=== PATIENT | female | born 1985 | race Caucasian/White ===

== ENCOUNTER → 2018-07-23 11:06 | Outpatient (CLI) | payer OTHER, SELFPAY ==
[2018-07-23 12:28] LABS: Absolute Lymphocyte Count 1.85 X10^3/ul (0.83-4.51); Absolute Neutrophil Count 2.9 X10^3/uL (2.0-7.7); Basophil# 0.01 X10^3/uL; Basophil% 0.2 % (0-1); Eosinophil# 0.04 X10^3/uL; Eosinophils% 0.8 % (0-5); Hematocrit 41.2 % (37-47); Hemoglobin 13.5 g/dl (12.0-15.0); Lymphocyte # 1.85 X10^3/ul (4.0); Lymphocyte % 35.4 % (19-41); Mean Corp Hgb Conc 32.8 g/gl (32-36); Mean Corpuscular Volume 88.6 fL (81-99); Monocyte# 0.44 X10^3/uL; Monocyte% 8.4 % (0-10); Neutrophil # 2.87 X10^3/uL (2.7-7.7); Platelet Count 194 K/mm3 (150-450); RBC Distribution Width CV 14.4 % (11.6-14.6); RBC Distribution Width SD 46.9 fl (35.1-43.9); Red Blood Count 4.65 M/mm3 (4.2-5.4); White Blood Count 5.2 K/mm3 (4.4-11.0)
[2018-07-23 12:33] LABS: POSITIVE COUNT NO; POSITIVE DIFFERENTIAL NO; POSITIVE MORPHOLOGY NO
[2018-07-23 12:47] LABS: Internal QC Validated? YES +Cl - CLEAR BKGD; Monotest Negative (Negative); Record Kit Lot#, Mono 13171517
[2018-07-25 11:39] LABS: EBV Acute VCA IgM < 36.0 U/mL (0.0-35.9); EBV Early Antigen IgG 21.6 U/mL (0.0-8.9); EBV-VCA IgG > 600.0 U/mL (0.0-17.9)
== END ==
PROVIDERS: Family Provider Family Medicine; PCP Family Medicine; Visit Provider Family Medicine
DX: J02.9 Acute pharyngitis, unspecified (principal)
CPT/HCPCS: 36415; 85025; 86308; 86663; 86664; 86665

== ENCOUNTER → 2018-10-16 14:56 | Outpatient (CLI) | payer OTHER, SELFPAY ==
--- NOTE | 2018-10-16 15:02 | US_ITS ---
STUDY: THYROID ULTRASOUND REASON FOR EXAM: Female, 33 years old. Nodules TECHNIQUE: Ultrasound evaluation of the thyroid was performed with real-time and static llamas-scale imaging. COMPARISON: 11/07/2017 FINDINGS: RIGHT LOBE: The right lobe of the thyroid gland measures 4.8 x 1.8 x 1.5 cm. There is a homogeneous echotexture. Stable 3 x 2 x 2 mm mixed cystic and solid nodule in the lateral inferior right thyroid lobe. LEFT LOBE: The left lobe of the thyroid gland measures 5.0 x 1.6 x 1.4 cm. There is a homogeneous echotexture. Stable ovoid isoechoic nodule in the mid left thyroid lobe measuring 7 x 7 x 5 mm. This is peripherally vascular. ISTHMUS: The isthmus measures 2 mm . US/Thyroid IMPRESSION: Stable bilateral thyroid nodules. No suspicious secondary features are seen. Electronically Signed: Johann Stone MD at 5:07 EST Tel , Service support ,
--- OUTSIDE RECORDS SUMMARY | 2018-12-11 20:34 | XMS RPT_ITS ---
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, 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, [facility] unspecified / Hospital E04.9(ICD-10) Repository PROCEDURES PROCEDURES No Procedure Records FoundRESULTS RESULTS THYROID Observed: 10/16/2018 Status: F Source: [place] 3:03 PM [facility] REPOSITORY [facility] Services [address] [place] [address] Thyroid MR#: [id number] Acct: [id number] Name: LACY CASTILLO Rep #: [id number] : 1985 F 33 From: Johann Stone MD PCP: Davey Zhang MD Status: REG CLI Study: Thyroid Date of Exam: 10/16/18 Exam# [id number] Ordering Dr: Darrel Zhang MD STUDY: THYROID ULTRASOUND REASON FOR EXAM: Female, 33 years old. Nodules TECHNIQUE: Ultrasound evaluation of the thyroid was performed with real-time and static llamas-scale imaging. COMPARISON: 11/07/2017 FINDINGS: RIGHT LOBE: The right lobe of the thyroid gland measures 4.8 x 1.8 x 1.5 cm. There is a homogeneous echotexture. Stable 3 x 2 x 2 mm mixed cystic and solid nodule in the lateral inferior right thyroid lobe. LEFT LOBE: The left lobe of the thyroid gland measures 5.0 x 1.6 x 1.4 cm. There is a homogeneous echotexture. Stable ovoid isoechoic nodule in the mid left thyroid lobe measuring 7 x 7 x 5 mm. This is peripherally vascular. ISTHMUS: The isthmus measures 2 mm . US/Thyroid IMPRESSION: Stable bilateral thyroid nodules. No suspicious secondary features are seen. Electronically Signed: Johann Stone MD at 5:07 EST Tel , Service support , CC: Davey Zhang MD Overlock Elastic Attacher: Signed CBC W/DIFF, AUTOMATED Collected: 07/23/2018 Status: F Source: [place] 11:07 AM [facility] REPOSITORY TYPE CODE TESTS RESULT OUT OF RANGE REFERENCE UNITS LAB L100.1000 4.4-11.0 K/mm3 Normal WBC 5.2 LAB L100.1200 4.2-5.4 M/mm3 Normal RBC 4.65 LAB L100.1300 12.0-15.0 g/dl Normal HGB 13.5 LAB L100.1400 37-47 % Normal HCT 41.2 LAB L100.1500 81-99 fL Normal MCV 88.6 LAB L100.1600 27.0-32.0 pg Normal MCH 29.0 LAB L100.1700 32-36 g/gl Normal MCHC 32.8 LAB L100.1810 11.6-14.6 % Normal RDW CV 14.4 LAB L100.1820 35.1-43.9 fl High RDW SD 46.9 LAB L100.1900 150-450 K/mm3 Normal PLT 194 LAB L100.2000 6.2-12.0 fl Normal MPV 12.0 LAB L100.2100 47-70 % Normal NEUT% 55.0 LAB L100.2200 19-41 % Normal LY% 35.4 LAB L100.2300 0-10 % Normal MONO% 8.4 LAB L100.2400 0-5 % Normal EO% 0.8 LAB L100.2500 0-1 % Normal BASO% 0.2 LAB L100.2550 0.0-0.9 % Normal IM GRAN % 0.200 Result Comment: IG% - Immature Granulocytes (promyelocytes, myelocytes and metamyelocytes) > 1% indicates that a LEFT SHIFT is Present. LAB L100.2620 2.0-7.7 X10 3/uL Normal Absolute Neut 2.9 LAB L100.2720 0.83-4.51 X10 3/ul Normal Absolute Lymph 1.85 Performed By: #### L100.0100 #### [facility] [address] [place], [place], [address] MONOTEST Collected: 07/23/2018 Status: F Source: [place] 11:07 AM [facility] REPOSITORY TYPE CODE TESTS RESULT OUT OF RANGE REFERENCE UNITS LAB L700.5700 Negative Normal MONO Negative Performed By: #### L700.5500 #### [facility] [address] [place], [address] EBV ACUTE PROF IGG Collected: 07/23/2018 Status: F Source: [place]IS[place] / IGM 11:07 AM [facility] REPOSITORY TYPE CODE TESTS RESULT OUT OF RANGE REFERENCE UNITS LAB L3100.5900 0.0-35.9 U/mL Normal EB-VCA < 36.0 [id number] Result Comment: Negative <36.0 Equivocal 36.0 - 43.9 Positive >43.9 LAB L3100.6000 0.0-8.9 U/mL High EB-EA IgG 21.6 [id number] Result Comment: Hepatitis A, Hepatitis C and HIV antibodies may cross-react with this assay. Negative < 9.0 Equivocal 9.0 - 10.9 Positive >10.9 LAB L3100.6100 0.0-17.9 U/mL High EB-VCA > [id number] 600.0 Result Comment: Negative <18.0 Equivocal 18.0 - 21.9 Positive >21.9 LAB L3100.6200 0.0-17.9 U/mL High EB-NAg 467.0 [id number] Result Comment: Negative <18.0 Equivocal 18.0 - 21.9 Positive >21.9 LAB L3100.6300 . INTERPRETATION Normal Comment Result Comment: EBV Interpretation Chart Interpretation EBV-IgM EA(D)-IgG VCA-IgG EBNA-IgG EBV Seronegative - - - - Early Phase + - - - Acute Primary + +or- + - Infection Convalescence/Past - +or- + + Infection Reactivated +or- + + + Infection + Antibody Present - Antibody Absent Performed at: [facility] [address] [id number] [employer] Laborer: Neto Stanley PhD, Phone: [phone] Performed By: #### L3100.5850 #### [facility] (refer to report for specific site) refer to report for address and phone number PROGRESS Observed: 12/09/2017 Status: COMPLETED Source: [place] 6:03 PM [facility] [place] REPOSITORY HNO ID: [id number] Author: Frantz Wells Service: (none) Author Type: Physician Type: Progress Notes Filed: 12/09/2017 6:26 PM Note Text: Patient presents with: Cough: chest congestion, head congestion, bodyaches, chills, sore throat x 3 days HPI: Feeling sick for 3 days. Her daughter is sick with URI also. Her has influenza. Positive symptoms: Cough, chest congestion, Sore throat, Sinus pressure, Chills, Body Aches, Nasal Congestion, Rhinorrhea, Post nasal drainage, Fever, Negative symptoms: Vomiting, Diarrhea, OTC: Ibuprofen Did not have influenza vaccine this season. PAST MEDICAL HISTORY Diagnosis Date - Abnormal glandular Papanicolaou smear of cervix Abn. Pap smear (cervix), ASCUS - Anemia - NEGATIVE MEDICAL HISTORY - Thyroid nodule - Varicosities RIGHT LEG MEDICATIONS: Current Outpatient Prescriptions: CETIRIZINE HCL (ZYRTEC ORAL) Take by mouth. LEVONORGESTREL (MIRENA INTRAUTERINE) by INTRAUTERINE route. No current facility-administered medications for this visit. ALLERGIES: ALLERGIES Allergen Reactions - Bees Unknown VITALS: BP 118/78 Pulse 94 Temp 37.5 ?C (99.5 ?F) (Tympanic) Resp 16 Wt 83.9 kg (185 lb) LMP 12/02/2017 SpO2 96% BMI 34.96 kg/m2 PHYSICAL EXAM: GEN: mildly ill appearing HEENT: PERRL, EOMI, conjunctiva clear Ears: canals clear, TMs without erythema, bulge, or effusion Sinuses: non-tender frontal sinus, non-tender maxillary sinuses Throat: moist mucous membranes, mild erythema, no exudate Neck: supple, no thyromegaly, no lymphadenopathy HEART: regular rate and rhythm, no murmurs LUNGS: clear to auscultation, no wheezes or crackles, no increased WOB ASSESSMENT/PLAN: 1. URI, acute - ICD9: 465.9, ICD10: J06.9 - Discussed viral etiology and rationale for treatment. She is beyond the therapeutic window for tamiflu. - Symptomatic treatment with prn analgesia/cold medicine - Supportive care with fluids and rest Frantz Wells MD CNOV Observed: 12/09/2017 Status: COMPLETED Source: [place] 5:45 PM [facility] REPOSITORY Office Visit (WSTR) LACY CASTILLO ([id number]) 1985 F CHT Date Time Provider Department 12/09/17 5:45 PM FRANTZ WELLS [facility] During your visit today, we recorded the following information about you: Temperature Pulse Respiration Blood pressure 99.5 degrees 94/minute 16/minute 118/78 Weight Last Period 83.9 kg 12/02/17 Frantz Wells MD 12/09/2017 6:26 PM Signed Patient presents with: Cough: chest congestion, head congestion, bodyaches, chills, sore throat x 3 days HPI: Feeling sick for 3 days. Her daughter is sick with URI also. Her has influenza. Positive symptoms: Cough, chest congestion, Sore throat, Sinus pressure, Chills, Body Aches, Nasal Congestion, Rhinorrhea, Post nasal drainage, Fever, Negative symptoms: Vomiting, Diarrhea, OTC: Ibuprofen Did not have influenza vaccine this season. PAST MEDICAL HISTORY Diagnosis Date - Abnormal glandular Papanicolaou smear of cervix Abn. Pap smear (cervix), ASCUS - Anemia - NEGATIVE MEDICAL HISTORY - Thyroid nodule - Varicosities RIGHT LEG MEDICATIONS: Current Outpatient Prescriptions: CETIRIZINE HCL (ZYRTEC ORAL) Take by mouth. LEVONORGESTREL (MIRENA INTRAUTERINE) by INTRAUTERINE route. No current facility-administered medications for this visit. ALLERGIES: ALLERGIES Allergen Reactions - Bees Unknown VITALS: BP 118/78 Pulse 94 Temp 37.5 ?C (99.5 ?F) (Tympanic) Resp 16 Wt 83.9 kg (185 lb) LMP 12/02/2017 SpO2 96% BMI 34.96 kg/m2 PHYSICAL EXAM: GEN: mildly ill appearing HEENT: PERRL, EOMI, conjunctiva clear Ears: canals clear, TMs without erythema, bulge, or effusion Sinuses: non-tender frontal sinus, non-tender maxillary sinuses Throat: moist mucous membranes, mild erythema, no exudate Neck: supple, no thyromegaly, no lymphadenopathy HEART: regular rate and rhythm, no murmurs LUNGS: clear to auscultation, no wheezes or crackles, no increased WOB ASSESSMENT/PLAN: 1. URI, acute - ICD9: 465.9, ICD10: J06.9 - Discussed viral etiology and rationale for treatment. She is beyond the therapeutic window for tamiflu. - Symptomatic treatment with prn analgesia/cold medicine - Supportive care with fluids and rest Frantz Wells MD Referring Provider: SELF [200] Allergies As of Date: 12/09/2017 Noted Allergy Reaction BEES 10/02/2014 16 - Unknown Date Reviewed: 12/09/2017 Reviewed by: Addie Lutz Ma - Fully Assessed Reason for Visit: Cough [28] Cmt: chest congestion, head congestion, bodyaches, chills, sore throat x 3 days Primary Visit Diagnosis:URI, acute [J06.9] Prescriptions as of 12/09/2017 Sig: ZYRTEC ORAL Take by mouth. MIRENA INTRAUTERINE by INTRAUTERINE route. Problem List As Of Date 12/09/2017 Noted Resolved PCB (post coital bleeding) [N93.0] INVALID FOR*09/01/2014 Thyroid nodule [E04.1] INVALID FOR*11/15/2014 More... Nausea and vomiting in [O21.9] INVALID FOR*09/01/2014 More... History of varicose veins [Z86.79] INVALID FOR*09/01/2014 More... Family history of defects [Z82.79] INVALID FOR*11/15/2014 More... Pneumonia [J18.9] INVALID FOR*09/01/2014 More... Supervision of normal first [Z34.00] INVALID FOR*11/15/2014 More... Medications Discontinued During This Encounter VIT/IRON FUMARATE/FA (PRENA* 12/09/2017 Class: Historical Med Route: ORAL Sig: Take by mouth once daily. Disc: Reason for discontinue is not on file. Breast Pump kd 1 De* 0 10/21/2014 12/09/2017 Class: Print RX Sig: As directed. Dx: v24.1 Lactating mother. Disc: Reason for discontinue is not on file. Cosign accepted by CORY REINOSO MD[[id number]] on 10/21/2014 5:01 PM Norethindrone, Contraceptive, (ORTHO* 1 Pa* 12 11/15/2014 12/09/2017 Route: ORAL Sig: Take 1 tablet by mouth once daily. Disc: Reason for discontinue is not on file. Encounter Status:Closed by FRANTZ WELLS MD on 12/09/17 MISCELLANEOUS LAB Collected: 11/07/2017 Status: F Source: [place] PROCEDURE 11:30 AM [facility] REPOSITORY Order Comment: Test(s) Ordered: [id number] TYPE CODE TESTS RESULT OUT OF RANGE REFERENCE UNITS LAB L801.1541 Normal [facility] LAB TEST Result Comment: TEST RESULT UNITS REFERENCE INTERVAL Liver-Kidney Microsomal Ab <1.0 Units 0.0 - 20.0 Negative 0.0 - 20.0 Equivocal 20.1 - 24.9 Positive >24.9 LKM type 1 antibodies are detected in patients with autoimmune hepatitis type 2 and in up to 8% of patients with chronic HCV infection. TESTING PERFORMED AT [facility]. ORIGINAL REPORT ON FILE IN LAB CONTAINS ADDITIONAL TEST SITE INFORMATION. Performed By: #### L801.1541 #### [place] [facility] [address] [place], [address] THYROID STIM HORMONE Collected: 11/07/2017 Status: F Source: [place]IS[place] (TSH) 11:23 AM [facility] REPOSITORY Order Comment: Order Date: 10/22/17 Order Info: 3016-3 - TSH Order Info: 3024-7 - T4F TYPE CODE TESTS RESULT OUT OF RANGE REFERENCE UNITS LAB L501.9520 0.358-3.74 uIU/mL Normal TSH 1.79 Performed By: #### L501.9520, L506.0400 #### [place] [facility] [address] [place], [address] T4 FREE DIRECT Collected: 11/07/2017 Status: F Source: [place] 11:23 AM [facility] REPOSITORY Order Comment: Order Date: 10/22/17 Order Info: 3016-3 - TSH Order Info: 3024-7 - T4F TYPE CODE TESTS RESULT OUT OF RANGE REFERENCE UNITS LAB L506.0400 0.76-1.46 ng/dL Normal T4 FREE 0.87 DIRECT Performed By: #### L501.9520, L506.0400 #### [facility] [address] [place], [address] THYROID Observed: 11/07/2017 Status: F Source: [place] 10:45 AM [facility] REPOSITORY [facility] Imaging Services [address] [place] [address] Thyroid MR#: [id number] Acct: [id number] Name: LACY CASTILLO Rep #: [id number] : 1985 F 32 From: Alonzo Ziegler MD PCP: Davey Zhang MD Status: REG CLI Study: Thyroid Date of Exam: 11/07/17 Exam# [id number] Ordering Dr: Darrel Zhang MD STUDY: THYROID ULTRASOUND REASON FOR EXAM: Female, 32 years old. History of thyroid goiter. TECHNIQUE: Ultrasound evaluation of the thyroid was performed with real-time and static llamas-scale imaging. COMPARISON: None. FINDINGS: RIGHT LOBE: The right lobe of the thyroid gland is enlarged and measures 5.2 cm x 1.6 cm x 1.5 cm. There is a homogeneous echotexture. There is a 3 mm x 2 mm x 2 mm hypoechoic nodule in the midportion of the lobe. LEFT LOBE: The left lobe of the thyroid gland is enlarged and measures 5.4 cm x 1.3 cm x 1.3 cm. There is a homogeneous echotexture. There is a isoechoic solid nodule measuring 7 mm x 9 mm x 4 mm in the midportion of the left lobe. ISTHMUS: The isthmus measures 3.0 mm. The regional lymph nodes are normal. US/Thyroid IMPRESSION: Enlarged thyroid gland. Subcentimeters solid nodules in both lobes. Electronically Signed: Alonzo Ziegler MD at 9:28 EST Tel [phone], Service support , CC: Davey Zhang MD Overlock Elastic Attacher: Signed ALLERGIES ALLERGIES DATE TYPE / CODE NAME / CODE REACTION SEVERITY SOURCE 04/09/2015 Drug venom-honey Anaphylaxis Unknown [facility] Allergy/4160 bee/[id number] [facility] 59033(SNOMED 698(RXNORM) Repository CT) 10/02/2014 Environ/[address] [facility] [address](SNOMED [place]) Repository ENCOUNTERS ENCOUNTERS ADMIT/DISCHARGE ACCOUNT ADMITTING ENCOUNTER LOCATION SOURCE NUMBER CLASS 10/16/2018 [id number] [facility] ing:US Repository 07/23/2018 [id number] [facility] ing:MFPLAB Repository 12/09/2017/12/09/19 [id number] [address]ulatory [address] Repository 11/07/2017 [id number] [facility] ing:[facility] Repository PAYERS PAYERS ENCOUNTER GUARANTOR PAYER SUBSCRIBER SOURCE 10/16/2018 LACY Castillo Primary Insurance:MED Geno Bentleytej [address] [facility]: [facility] [place]: [id number] [id number] Repository [address]Sxs: [phone]) Date:7359-13-36[phone] () [address], [place] [address]AL: CHECK WEBSITE 10/16/2018 Secondary NOT GIVENUNK [place] Insurance:SELF PAY [facility] ([place], [place]) Number: Effective Repository Date:2018-10-03 07/23/2018 Lacy Castillo Primary Insurance:MED Genoluz elena Edmondson [address]ok[address] [facility] [place] Number: [id number] [id number] Repository [address]Seg: [phone]) Date:7534-12-30PY [phone] () [address], [place] [address]FE: CHECK WEBSITE 07/23/2018 Secondary NOT GIVENUNK [place] Insurance:SELF PAY [facility] ([place], [place]) Number: Effective Repository Date:2018-07-23 11/07/2017 Lacy Castillo Primary Insurance:PHYLLIS Castillo238 [facility] Number: [id number], [place] [id number] Repository [address]Pqi: ([phone]) Date:7854-32-59UK [phone] () [address], [place] [address]YV: CHECK WEBSITE 11/07/2017 Secondary NOT GIVENUNK [place] Insurance:SELF PAY [facility] ([place], [place]) Number: Effective Repository Date:2017-10-24
== END ==
PROVIDERS: Family Provider Family Medicine; PCP Family Medicine; Referring Provider Family Medicine; Visit Provider Family Medicine
DX: E04.1 Nontoxic single thyroid nodule (principal)
CPT/HCPCS: 76536

== ENCOUNTER → 2019-08-06 | Outpatient (CLI) | payer OTHER, SELFPAY ==
[2019-08-06 17:27] LABS: Hematocrit 40.5 % (37-47); Hemoglobin 13.3 g/dL (12.0-15.0); Mean Corp Hgb Conc 32.8 g/dL (32-36); Mean Corpuscular Hgb 29.7 pg (27.0-32.0); Mean Corpuscular Volume 90.4 fL (81-99); Mean Platelet Vol. 12.2 fl (6.2-12.0); Platelet Count 228 K/mm3 (150-450); RBC Distribution Width CV 13.2 % (11.6-14.6); Red Blood Count 4.48 M/mm3 (4.2-5.4); White Blood Count 5.5 K/mm3 (4.4-11.0)
[2019-08-06 17:36] LABS: Erythrocyte Sedimentation Rate 6 mm/hr (0-20)
[2019-08-06 17:50] LABS: Anion Gap 3 (5-15); BUN 10 mg/dL (7-18); BUN/Creat Ratio 11.3 RATIO (10-20); Chloride 107 mmol/L (98-107); Creatinine, Serum 0.88 mg/dL (0.55-1.02); EST Glomerular Filtration Rate 79 mL/min (>60); Est Glom Filt Rate - Afr Amer 95 mL/min (>60); Ferritin 60 ng/mL (8-252); Free T3 2.9 pg/mL (2.18-3.98); Glucose 91 mg/dL (74-106); Iron 67 ug/dL (50-170); Potassium 3.8 mmol/L (3.5-5.1); Sodium Level 139 mmol/L (136-145); T3 Uptake 32 % (30-39); T4 Free Direct 0.92 ng/dL (0.76-1.46); Thyroid Stim Hormone (TSH) 2.19 uIU/mL (0.358-3.74)
[2019-08-06 17:51] LABS: Vitamin B12 407 pg/mL (211-911); Vitamin D,25 Hydroxy 24.8 ng/mL (29.95-100.01)
[2019-08-06 18:09] LABS: T7 / Free Thyroxin Index 0.3 (1.4-4.5)
[2019-08-08 10:17] LABS: Thyroid Peroxidase AB < 6 IU/mL (0-34)
== END | disposition home or self-care (01) ==
LOC: MFPLAB 15:44
PROVIDERS: Family Provider Family Medicine; PCP Family Medicine; Referring Provider Family Medicine; Visit Provider Family Medicine
DX: R53.83 Other fatigue (principal)
CPT/HCPCS: 36415; 80048; 82306; 82607; 82728; 83540; 84439; 84443; 84479; 84481; 85027; 85652; 86376

== ENCOUNTER 2019-08-18 20:54 | Emergency (ER) | payer OTHER, SELFPAY ==
[2019-08-18 20:55] VITALS: BP 137/73; PULSE 82; RESP 15; TEMP 36.7; O2SAT 97; BMI 35.1
--- NOTE | 2019-08-18 21:28 | CT_ITS ---
STUDY: CT ABDOMEN AND PELVIS WITH CONTRAST REASON FOR EXAM: Female, 34 years old. Lower abdominal pain RADIATION DOSAGE (If Supplied By Facility): CTDIvol = ( 15.45 ) mGy, DLP = ( 941.56 ) mGycm TECHNIQUE: Transaxial images were obtained from the dome of the diaphragm to the symphysis pubis without oral contrast. IV Isovue 300 100 was administered. Sagittal and coronal images were reconstructed. Individualized dose optimization techniques were used for this CT. COMPARISON: None. FINDINGS: The visualized lung bases are unremarkable. The visualized portions of the heart are within normal limits. Normal liver. Normal gallbladder and extrahepatic biliary system. There is mild splenomegaly. Normal pancreas. Normal bilateral adrenal glands. Normal right kidney. Normal left kidney. Normal visualized stomach. Normal small intestine. Normal colon. There is moderate stool. The appendix is visualized and appears normal. Normal abdominal aorta. Normal inferior vena cava. Normal retroperitoneum. Normal urinary bladder. There is IUD in the uterus. There are adnexal follicles. There is a small umbilical hernia containing fat. Normal osseous structures. CT/Abdomen/Pelvis W IV Cont ONLY IMPRESSION: Adnexal follicles. IUD in the uterus. Mild splenomegaly. Moderate stool. No obstruction. Electronically Signed: Jesse Waller MD at 22:56 EDT , Service support ,
[2019-08-18 21:40] LABS: Absolute Lymphocyte Count 2.12 X10^3/uL (0.83-4.51); Absolute Neutrophil Count 3.8 X10^3/uL (2.0-7.7); Basophil# 0.03 X10^3/uL; Basophil% 0.5 % (0-1); Eosinophil# 0.05 X10^3/uL; Eosinophils% 0.8 % (0-5); Hematocrit 39.3 % (37-47); Hemoglobin 12.8 g/dL (12.0-15.0); Lymphocyte # 2.12 X10^3/ul (4.0); Lymphocyte % 33.5 % (19-41); Mean Corp Hgb Conc 32.6 g/dL (32-36); Mean Corpuscular Hgb 29.1 pg (27.0-32.0); Mean Corpuscular Volume 89.3 fL (81-99); Mean Platelet Vol. 11.9 fl (6.2-12.0); Monocyte# 0.33 X10^3/uL; Monocyte% 5.2 % (0-10); NRBC Flagged by Analyzer 0 % (0-5); Neutrophil # 3.78 X10^3/uL (2.7-7.7); Neutrophil % 59.7 % (47-70); Platelet Count 217 K/mm3 (150-450); RBC Distribution Width CV 13.1 % (11.6-14.6); White Blood Count 6.3 K/mm3 (4.4-11.0)
[2019-08-18 21:44] LABS: Anion Gap 7 (5-15); BUN 11 mg/dL (7-18); BUN/Creat Ratio 13.4 RATIO (10-20); Calcium,Total 9.6 mg/dL (8.5-10.1); Chloride 104 mmol/L (98-107); Creatinine, Serum 0.82 mg/dL (0.55-1.02); EST Glomerular Filtration Rate 86 mL/min (>60); Est Glom Filt Rate - Afr Amer 104 mL/min (>60); Estimated Creatinine Clearance 74.32 ml/min; Glucose 100 mg/dL (74-106); Potassium 3.7 mmol/L (3.5-5.1); Sodium Level 139 mmol/L (136-145)
[2019-08-18 22:06] LABS: Bacteria 0 SEEN /hpf (None Seen); Mucous, Urine 0 SEEN /hpf (<or=2+); Red Blood Cells-Urine 0 SEEN /hpf (0-5); White Blood Cells 0 SEEN /hpf (0-5)
[2019-08-18 22:16] LABS: Color, Urine Yellow (Yellow); Glucose, Dipstick Normal (Normal); Ketone-Dipstick Negative (Negative); Leukocyte Esterase-Dipstick Negative /ul (Negative); Nitrite-Dipstick Negative (Negative); Occult Blood-Urine Negative /ul (Negative); Protein-Dipstick Negative (Negative); Specific Gravity, Urine 1.005 (1.002-1.030); Urine Bilirubin Dipstick Negative (Negative); Urine Clarity Sl. Cloudy (Clear); Urine Urobilinogen Normal (Normal)
[2019-08-18 22:22] LABS: Internal QC Validated? YES +Cl - CLEAR BKGD; Pregnancy, Urine Negative Negative
[2019-08-18 22:25] LABS: Squamous Epithelial Cells - UA 0-5 SEEN /hpf (5-10)
--- NOTE | 2019-08-18 23:09 | ED.VISSUMM ---
- ER Visit Summary Date of Service: 08/18/19 Chief Complaint: Abdominal pain History of Present Illness: The patient is a 34 F [place] the emergency department tonight. Seen severe abdominal cramping. Patient states she came home from work and began to feel cramping in the lower abdomen. She felt like maybe she did have a bowel movement but did not. She states the cramping kept coming and going and at one point was pretty severe she got hot sweaty and lightheaded. States she has an IUD in place. No vomiting or diarrhea. No fevers. Is otherwise a very healthy individual only taking Zyrtec for allergies. She had a prior no other abdominal surgeries. Physical Examination: Afebrile vital signs stable Gen: Well-nourished well-developed Head: Normocephalic atraumatic Eyes: Perrl EOMI ENT: TMs clear no rhinorrhea moist mucous membranes Neck: Supple no lymphadenopathy no JVD nontender CVS: Regular rate rhythm no murmurs normal S1-S2 Respiratory: No distress clear to auscultation bilaterally chest nontender Abdomen: Soft nontender nondistended normal bowel sounds no masses Back: Nontender Extremity: Nontender no edema Skin: Normal color no rash Neuro: alert orientated ?3 CN II-XII intact normal strength sensation Psych: Normal affect normal mood Test Results: CBC BMP were normal. Urinalysis normal. test was negative. CT down pelvis was negative for acute findings. Emergency Department Course and Treatment: Repeat exam finds the patient to be doing well. I do not have a clear explanation for her pain I do not see an significant pathology to require an admission. Patient will follow-up with her doctor in 1 to 2 days if her symptoms continue or return if there are worsening Impression: 1. Acute abdominal pain 2. Vasovagal near syncope This note was generated with [employer] dictation software. It may contain incorrect words, spelling, and punctuation that were not noted in review of the chart prior to signing ED Disposition - Plan for ED Patient: Disposition: Home or Assisted Living Instructions: ABDOMINAL PAIN, Unknown Cause, (Female), NEAR SYNCOPE, Vasovagal Referrals: Darrel Zhang MD [Primary Care Provider] - (in 1-2 days if continued symptoms)
== END 2019-08-18 23:18 | disposition home or self-care (01) ==
PROVIDERS: Emergency Provider Emergency Medicine; Family Provider Family Medicine; PCP Family Medicine
DX: R55 Syncope and collapse (principal)
CPT/HCPCS: 74177; 80048; 81001; 81025; 85025; 99285; Q9967; A4216

== ENCOUNTER → 2020-12-14 15:32 | Outpatient (CLI) | payer OTHER, SELFPAY ==
[2019-10-08 17:40] VITALS: BMI 35.1
[2020-12-19 10:08] LABS: HPV APTIMA, High Risk Negative (Negative)
== END ==
PROVIDERS: PCP Family Medicine; Visit Provider Obstetrics & Gynecology
DX: Z12.4 Encounter for screening for malignant neoplasm of cervix (principal)
CPT/HCPCS: 87624; 88175; G0145

== ENCOUNTER → 2021-06-14 15:13 | Outpatient (CLI) | payer OTHER, SELFPAY ==
[2019-10-08 17:40] VITALS: BMI 35.1
[2021-06-14 17:39] LABS: Absolute Lymphocyte Count 1.64 X10^3/uL (0.83-4.51); Absolute Neutrophil Count 3.1 X10^3/uL (2.0-7.7); Basophil# 0.02 X10^3/uL; Basophil% 0.4 % (0-1); Eosinophil# 0.08 X10^3/uL; Eosinophils% 1.6 % (0-5); Hematocrit 40.7 % (37-47); Hemoglobin 13.2 g/dL (12.0-15.0); Lymphocyte # 1.64 X10^3/ul (0.83-4.51); Lymphocyte % 32.9 % (19-41); Mean Corp Hgb Conc 32.4 g/dL (32-36); Mean Corpuscular Hgb 29.1 pg (27.0-32.0); Mean Corpuscular Volume 89.8 fL (81-99); Mean Platelet Vol. 12.2 fl (6.2-12.0); Monocyte# 0.19 X10^3/uL; Monocyte% 3.8 % (0-10); NRBC Flagged by Analyzer 0 % (0-5); Neutrophil # 3.05 X10^3/uL (2.7-7.7); Neutrophil % 61.3 % (47-70); Platelet Count 240 K/mm3 (150-450); RBC Distribution Width CV 13.3 % (11.6-14.6); RBC Distribution Width SD 44.1 fl (35.1-43.9); Red Blood Count 4.53 M/mm3 (4.2-5.4)
[2021-06-14 17:50] LABS: Erythrocyte Sedimentation Rate 6 mm/hr (0-30)
[2021-06-14 18:08] LABS: ALB/GLOB Ratio 1.2 RATIO (0.9-2.4); AST(SGOT) 16 U/L (15-37); Alanine Aminotransfer ALT/SGPT 21 U/L (13-56); Alkaline Phosphatase 74 U/L (45-117); Anion Gap 5 (5-15); BUN 9 mg/dL (7-18); BUN/Creat Ratio 11.3 RATIO (10-20); Calcium,Total 9.1 mg/dL (8.5-10.1); Chloride 105 mmol/L (98-107); EST Glomerular Filtration Rate 87 mL/min (>60); Est Glom Filt Rate - Afr Amer 106 mL/min (>60); Ferritin 69 ng/mL (8-252); Globulin 3.3 g/dL (2.2-4.2); Glucose 179 mg/dL (74-106); Iron 85 ug/dL (50-170); Potassium 3.8 mmol/L (3.5-5.1); Protein, Total 7.3 g/dL (6.4-8.2); Sodium Level 139 mmol/L (136-145); T4 Free Direct 0.98 ng/dL (0.76-1.46); Thyroid Stim Hormone (TSH) 1.03 uIU/mL (0.358-3.74)
[2021-06-14 18:15] LABS: Vitamin B12 254 pg/mL (211-911); Vitamin D,25 Hydroxy 30.5 ng/mL
== END ==
PROVIDERS: PCP Family Medicine; Referring Provider Family Medicine; Visit Provider Family Medicine
DX: R53.83 Other fatigue (principal); E04.1 Nontoxic single thyroid nodule
CPT/HCPCS: 36415; 80053; 82306; 82607; 82728; 83540; 84439; 84443; 84481; 85025; 85652

== ENCOUNTER → 2021-09-03 14:57 | Outpatient (CLI) | payer OTHER, SELFPAY | PROVIDERS: PCP Family Medicine; Referring Provider Physician Assistant Medical; Visit Provider Physician Assistant Medical | DX: R05.9 Cough, unspecified (principal) | CPT/HCPCS: 87635; U0005; U0003 ==

== ENCOUNTER → 2021-09-19 16:41 | Outpatient (CLI) | payer OTHER, SELFPAY ==
[2021-09-19 18:32] LABS: Vitamin B12 778 pg/mL (211-911); Vitamin D,25 Hydroxy 46.4 ng/mL
== END ==
PROVIDERS: PCP Family Medicine; Referring Provider Family Medicine; Visit Provider Family Medicine
DX: E53.8 Deficiency of other specified B group vitamins (principal); E55.9 Vitamin D deficiency, unspecified
CPT/HCPCS: 36415; 82306; 82607

== ENCOUNTER 2022-02-20 15:31 | Outpatient (CLI) | payer OTHER, SELFPAY ==
[2022-02-20 18:01] LABS: Hematocrit 42.9 % (37-47); Hemoglobin 13.9 g/dL (12.0-15.0); Mean Corp Hgb Conc 32.4 g/dL (32-36); Mean Corpuscular Hgb 29.3 pg (27.0-32.0); Mean Corpuscular Volume 90.3 fL (81-99); Mean Platelet Vol. 12.1 fl (6.2-12.0); Platelet Count 263 K/mm3 (150-450); RBC Distribution Width CV 13.3 % (11.6-14.6); Red Blood Count 4.75 M/mm3 (4.2-5.4); White Blood Count 6.8 K/mm3 (4.4-11.0)
[2022-02-20 18:04] LABS: Erythrocyte Sedimentation Rate 6 mm/hr (0-30)
[2022-02-20 18:05] LABS: Vitamin B12 256 pg/mL (211-911); Vitamin D,25 Hydroxy 59.1 ng/mL
[2022-02-20 18:18] LABS: ALB/GLOB Ratio 1.2 RATIO (0.9-2.4); AST(SGOT) 17 U/L (15-37); Alanine Aminotransfer ALT/SGPT 22 U/L (13-56); Alkaline Phosphatase 84 U/L (45-117); Anion Gap 4 (5-15); BUN 11 mg/dL (7-18); BUN/Creat Ratio 13.4 RATIO (10-20); Calcium,Total 9.6 mg/dL (8.5-10.1); Chloride 106 mmol/L (98-107); Creatinine, Serum 0.82 mg/dL (0.55-1.02); EST Glomerular Filtration Rate 85 mL/min (>60); Est Glom Filt Rate - Afr Amer 103 mL/min (>60); Free T3 2.6 pg/mL (2.18-3.98); Globulin 3.4 g/dL (2.2-4.2); Glucose 96 mg/dL (74-106); Iron 56 ug/dL (50-170); Potassium 4.1 mmol/L (3.5-5.1); Protein, Total 7.4 g/dL (6.4-8.2); Sodium Level 138 mmol/L (136-145); T3 Uptake 31 % (30-39); T4 Free Direct 0.98 ng/dL (0.76-1.46); Thyroid Stim Hormone (TSH) 1.95 uIU/mL (0.358-3.74)
[2022-02-20 19:02] LABS: T7 / Free Thyroxin Index 0.3 (1.4-4.5)
[2022-02-27 12:10] LABS: Anti-Thyroglobulin AB < 1.0 IU/mL (0.0-0.9); Thyroglobulin, Serum Qt. 3.6 ng/mL (1.5-38.5)
== END 2022-02-20 23:59 | disposition home or self-care (01) ==
LOC: MFPLAB 15:35
PROVIDERS: PCP Family Medicine; Referring Provider Family Medicine; Visit Provider Family Medicine
DX: R53.83 Other fatigue (principal)
CPT/HCPCS: 36415; 80053; 82306; 82533; 82607; 83540; 84432; 84439; 84443; 84479; 84481; 85027; 85652; 86800

== ENCOUNTER 2022-09-23 18:32 | Emergency (ER) | payer OTHER, SELFPAY ==
[2022-09-23 18:33] VITALS: BP 121/86; PULSE 111; RESP 16; TEMP 35.9; O2SAT 95; BMI 35.4
[2022-09-23] MEDS: 0.9% Normal Saline 1,000 ML 1000 ML IV (19:11)
[2022-09-23] MEDS: Ondansetron 4 MG/2 ML Vial IV (19:11)
--- NOTE | 2022-09-23 19:23 | EDS_ITS ---
HPI History of Present Illness Chief Complaint: Nausea/Vomiting/Diarrhea Detail of Chief Complaint: Abdominal pain with nausea, vomiting and diarrhea Informant: patient Onset/Context/Timing Onset: Today (Onset 0200) Context: Sudden Onset Timing: Intermittent and Waxes and wanes Quality: Vomiting x10, diarrhea x3 and diffuse abdominal pain Location: Diffuse abdominal pain Current Severity: Mild Maximum Severity: Moderate Worsened by: Vomiting and diarrhea Relieved by: Nothing Associated Symptoms Associated Symptoms: Thirst, dry mouth, orthostatic symptoms Narrative Narrative: Patient is a 37-year-old obese woman who presents with generalized abdominal pain without radiation and associated with nausea, vomiting diarrhea. Children were ill prior to her illness. She denies headache. She does report fever. She denies ear pain or ear drainage. Denies rhinorrhea, congestion postnasal drainage. She does report sore throat. She denies cough or shortness of breath. She denies dysuria, frequency, urgency or hematuria. She denies abnormal vaginal bleeding. She denies rash. Prior similar symptoms: No Recent Illness/Hospitalization: No PFSH PFSH Medical History (Updated 09/23/22 @ 21:[address] Eusebio Jha MD) Fever Hay fever Hx of viral meningitis Thyroid disease Home Medications cetirizine 10 mg capsule 10 mg PO DAILY 08/18/19 [History Last Taken Unknown] cholecalciferol (vitamin D3) 25 mcg (1,000 unit) capsule 1,000 unit PO DAILY 09/21/19 [History Last Taken Unknown] ondansetron 4 mg disintegrating tablet 4 mg PO Q8H PRN PRN Nausea #10 tabs 09/23/22 [Rx Last Taken Unknown] Allergy/AdvReac Type Severity Reaction Status Date / Time venom-honey bee Allergy Anaphylaxis Verified 09/23/22 18:32 [bee venom (honey bee)] Surgical History History of section Social History (Updated 09/23/22 @ 19:[address] Eusebio Jha MD) household members: spouse and children Smoking Status: Never smoker alcohol intake: never substance use type: does not use ROS ROS ED Constitutional Constitutional ED: Reports fever(s); Denies chills, sweats or weight loss Eyes Eyes: Denies blurry vision, change in vision or diplopia ENT ENT ED: Reports sore throat; Denies ear pain or rhinorrhea Cardiovascular Cardiovascular: Denies chest pain or palpitations Respiratory/Chest Respiratory/Chest: Denies cough, dyspnea or dyspnea on exertion Gastrointestinal Gastrointestinal: Reports abdominal pain, diarrhea, nausea and vomiting; Denies constipation or melena Genitourinary Genitourinary ED: Denies dysuria, hematuria or urinary frequency Musculoskeletal Musculoskeletal: Denies arthralgias, back pain, myalgias or neck pain Integumentary Denies Abrasions or rash Neurologic Neurologic: Denies headache(s), paresthesias or weakness Psychiatric Psychiatric: Denies anxiety or depression Endocrine Endocrinology: Denies cold intolerance or heat intolerance Hematologic/Lymphatic Hematologic/Lymphatic: Reports none EXAM Physical Exam Const Vital Signs: 09/23/22 18:33 09/23/22 20:47 Temperature 96.7 F L Temperature Source Temporal Pulse Rate 111 H 94 Respiratory Rate 16 16 Blood Pressure 121/86 H 122/82 H Blood Pressure Mean 97 95 Pulse Ox 95 100 Oxygen Delivery Method Room Air Room Air Positive well nourished, well developed and obese Constitutional Narrative: Patient began to cry when I began my history and physical exam. General Appearance ED: well developed; Negative for cyanotic, diaphoretic or pallor Nutritional Appearance: obese HEENT Reports dry mucous membranes HEENT Narrative: Head is atraumatic normocephalic. Ears normal. Nares patent. Uvula midline. There is no erythema or exudate the posterior pharynx. Mouth ED: Yes dry mucous membranes Mouth: dry mucous membranes Eyes PERRL and EOMs intact bilaterally General Eye ED: Negative for pale conjunctiva or scleral icterus Neck no lymphadenopathy, supple and no JVD Resp normal respiratory effort and clear to auscultation bilaterally Cardio regular rhythm, S1 normal heart sound, S2 normal heart sound and no murmurs Rate: tachycardic GI normal to inspection, nondistended, normoactive bowel sounds, non-tender, non- distended and no masses; Negative for hepatosplenomegaly Palpation: soft Back/Spine no CVA tenderness Back/Spine Narrative: Inspection is normal. Extremity normal to inspection General Extremety ED: Negative for edema or tenderness General Extremity: Negative for edema Neuro No oriented x3, No CN's II-XII intact bilaterally and No no sensory deficits noted Neuro Narrative: She complains of tingling in her feet. There is no abnormal sensation. DTRs are 2+ at patella and ankle. DP and PT pulse are palpable. Sensorium / Orientation: alert Psych Mood & Affect: tearful Skin no rashes or lesions noted, no wounds and skin turgor normal General Skin Exam: Negative for jaundice or pallor MDM MDM MDM Narrative Medical decision making narrative: His history and physical exam is consistent with viral gastroenteritis with dehydration. Since she is under the age of 40 and on no diuretic electrolyte panels not warranted specially since onset was less than 24 hours ago. Patient received IV fluids. She was treated with Zofran for her nausea and Imodium for her diarrhea. Treatment and Re-Evaluation Narrative: Patient was reassessed at 2100. She has had no further vomiting. She passed p.o. challenge. She looks better. She reports feeling better. She is no longer tearful. Discharge Plan Triage Chief Complaint: Nausea/Vomiting/Diarrhea ED Provider: Eusebio Jha Dx/Rx/DC Orders Clinical Impression: Abdominal pain, vomiting, and diarrhea, Dehydration, mild, Viral illness, Headache Instructions: ED Vomiting and Diarrhea ... Prescriptions: New ondansetron [ondansetron] 4 mg tablet,disintegrating 4 mg PO Q8H PRN PRN (Reason: Nausea) Qty: 10 0RF No Action cholecalciferol (vitamin D3) 1,000 unit capsule 1,000 unit PO DAILY cetirizine 10 MG capsule 10 mg PO DAILY Primary Care Provider: Darrel Zhang Referrals: Darrel Zhang MD [Primary Care Provider] - 1-2 Days if not improving Disposition Disposition: Home, Self Care
[2022-09-23] MEDS: Acetaminophen 325 MG Tablet 650 MG PO (20:43)
[2022-09-23] MEDS: Loperamide 2 MG Capsule 4 MG PO (20:44)
[2022-09-23 20:47] VITALS: BP 122/82; PULSE 94; RESP 16; O2SAT 100
== END 2022-09-23 21:18 | disposition home or self-care (01) ==
PROVIDERS: Emergency Provider Emergency Medicine; PCP Family Medicine; Visit Provider Emergency Medicine
DX: R10.9 Unspecified abdominal pain (principal); R11.2 Nausea with vomiting, unspecified; R19.7 Diarrhea, unspecified; E86.0 Dehydration; B34.9 Viral infection, unspecified; R51.9 Headache, unspecified; E66.9 Obesity, unspecified
CPT/HCPCS: 96361; 96374; 99283; J7030; J2405

== ENCOUNTER 2022-11-01 05:58 | Day surgery (SDC) | payer OTHER, SELFPAY ==
[2022-10-26 16:51] LABS: Hematocrit 39.9 % (37-47); Mean Corp Hgb Conc 32.6 g/dL (32-36); Mean Corpuscular Hgb 29.1 pg (27.0-32.0); Mean Corpuscular Volume 89.5 fL (81-99); Mean Platelet Vol. 11.6 fl (6.2-12.0); Platelet Count 310 K/mm3 (150-450); RBC Distribution Width CV 13.5 % (11.6-14.6); RBC Distribution Width SD 44.2 fl (35.1-43.9); Red Blood Count 4.46 M/mm3 (4.2-5.4)
[2022-10-26 17:00] LABS: Prothrombin Time (Protime)PT. 12.8 SECONDS (11.7-14.9)
[2022-10-26 17:01] LABS: Partial Thromboplast Time 28.3 Seconds (24.1-36.2)
[2022-10-26 17:14] LABS: Thyroid Stim Hormone (TSH) 1.33 uIU/mL (0.358-3.74)
[2022-11-01] VITALS (9 sets, daily range): BP systolic 94–106; BP diastolic 60–77; PULSE 52–81; RESP 16–18; TEMP 36.3–36.9; O2SAT 96–100; BMI 35.5
--- NOTE | 2022-11-01 05:57 | HP.PCM.OB_ITS ---
History and Physical Date of Admission: 11/01/22 HPI: 37-year-old female with persistent ovarian cyst and abdominal pain presenting for laparoscopic right ovarian cystectomy, possible right oophorectomy. Denies headache, vision changes, chest pain or shortness of breath, nausea or vomiting, diarrhea constipation, fevers or chills. [employer] history: G4, P4 Medical history: 1. Seasonal allergies Surgical history: 1. section x2 Medications: 1. Mirena IUD 2. Vitamin D3 3. Zyrtec Allergies: No known drug allergies Social history: Denies tobacco, alcohol, drug use Family history: Ovarian cancer in mother Review of system: Negative otherwise stated above Physical exam: Vitals pending General: Patient is no acute distress HEENT: Normocephalic/atraumatic, PERRLA Cardiac: Regular rate and rhythm, no murmurs rubs or gallops Lungs: Clear to auscultation bilaterally Abdomen: Soft, nontender, nondistended Extremities: No edema Neurologic: Cranial nerves II through XII grossly intact, no focal deficits Musculoskeletal: Strength out of 5 throughout all extremities Assessment/plan: 37-year-old female with persistent ovarian cyst and abdominal pain presenting for laparoscopic right ovarian cystectomy, possible right oophorectomy. All risk, benefits, alternatives discussed with the patient. Risk include but are not limited to: Risk of bleeding, transfusion, infection, injury to surrounding tissue including bowel/bladder/major abdominal vessels, VTE, ICU admission. Patient aware and consented.
[2022-11-01 06:30] LABS: Internal QC Validated? YES +Cl - CLEAR BKGD; Pregnancy, Urine Negative Negative
[2022-11-01] MEDS: Lactated Ringers 1,000 ML 15 ML IV (06:42)
--- NOTE | 2022-11-01 07:30 | OV_PTH ---
PATIENT: LACY CASTILLO LOC: [facility] – [place] U#:[id number] AGE/SX: 37/F ROOM: RE11/01/[address]: Dr. Susan Baeza DO : 1985 BED: DIS: 11/01/2022 SPEC #: [id number] RECD: 11/01/22 12:00 STATUS: JADA RESherin #: [id number] EM: 11/01/22 07:[address]: Susan Baeza DEPT: SURGICAL PATHOLOGY RECD BY: Wendy Pena ENTERED: 11/01/22 12:27 SP TYPE: OVARY OTHR DR: Dr. Davey Zhang MD Tissues: A - OVARIAN CYST B - OVARIAN CYST Procedures: Surgery Specimen Level IV HEADER OPERATION: Laparoscopic ovarian cystectomy, possible oophorectomy PRE-OP DIAGNOSIS: Right ovarian cyst TISSUE SUBMITTED: A ? Right ovarian cyst sac, B ? Left ovarian cyst sac MICROSCOPIC DIAGNOSIS A. Right ovarian cyst sac, excision: Consistent with corpus luteal cyst and follicular cyst. B. Left ovarian cyst sac, excision: Hemorrhagic corpus luteal cyst. AM:rufina 11/02/2022 MICROSCOPIC DESCRIPTION Slides are reviewed. GROSS DESCRIPTION A - Received in fixative is one container labeled with the patient's name and designated right ovarian cyst sac. The specimen consists of three variable pieces of power-pink soft tissue measuring in aggregate 2 x 1 x 0.5 cm. The largest piece is bisected. The entire specimen is submitted in one cassette. B - Received in fixative is one container labeled with the patient's name and designated left ovarian cyst sac. The specimen consists of a piece of power-pink soft tissue measuring 3.5 x 1 x 1 cm. Sections reveal yellowish-orange cut surfaces. Also present in the container is a piece of power-pink soft tissue measuring 1 x 0.5 x 0.2 cm. The entire specimen is submitted in two cassettes. / SJ:rufina 11/01/2022 TC:5 CPT: 20790 x2
--- NOTE | 2022-11-01 07:30 | OP.PCM_ITS ---
Report of Operation Date of Procedure: 11/01/22 Pre-Operative Diagnosis: Right ovarian cyst Post-Operative Diagnosis: Right and left ovarian cysts, omental adhesions. Surgery/Procedure Performed:: Laparoscopic bilateral ovarian cystectomies, lysis of adhesions. Description of Surgical Findings:: Normal-appearing genitalia. Minimal uterine descensus. IUD strings noted at cervical os at beginning and end of case. Small area of omental adhesions to anterior abdominal wall. Right ovarian cyst enveloping normal ovarian tissue, cystic in appearance. Left ovarian cyst, simple in appearance. Clear fluid extruded from left ovary. Scar tissue noticed in the posterior cul-de-sac (near right ureter), appearance indicated endometriosis. No other areas of endometriosis noted. Type of Anesthesia: General Specimen's removed: Right and left ovarian cyst wall Estimated Blood Loss (mL): 20 cc Fluids Replaced: 1100cc Description of Procedure: Indications laceration/benefits: 37-year-old female with persistent right ovarian cyst plan for laparoscopic right ovarian cystectomy, possible right oo phorectomy. All risk, benefits, alternatives were discussed with the patient. Risks are not limited to: Risk of bleeding twin transfusion, infection, injury to surrounding tissue including bowel/bladder/uterine perforation/major abdominal vessels, VTE, ICU admission. Patient were consented. Procedure: Patient taken to the operating room and placed under general anesthesia. Patient placed in the dorsal lithotomy position and prepped and draped in usual sterile fashion. Schulz catheter placed. Weighted speculum placed in posterior vagina and Potts retractor used to visualize the cervix. An terior lip of the cervix grasped with single-tooth tenaculum. Cervix slightly dilated, Sargis manipulator placed. Retractors removed. Gloves were changed and attention turned to the anterior abdominal wall. 5 mm infraumbilical incision made with scalpel and trocar placed under direct visualization. Abdomen insufflated. Right and left lower quadrant 5 mm trochars placed under direct visualization. Inspection of abdomen noted findings as stated above. Omental adhesions lysed using laparoscopic scissors, omentum hemostatic. Right ovary grasped and ovarian cyst carefully dissected from normal ovarian tissue using laparoscopic scissors. Attention turned to the left ovary. An area of vascular congestion in the IP ligament noted lateral to the ovary. Decision to remove left ovarian cyst was made due to presence of the cyst, vascular congestion, and patient's family history of maternal ovarian cancer. Left ovarian cyst removed using laparoscopic scissors and LigaSure device. Area of vascular congestion of the IP ligament noted to be resolved after cystectomy. Left ovary made hemostatic using LigaSure device along the dissection bed. Pelvis suction irrigated. Ender placed along both ovaries. No active bleeding or oozing noted, ovaries noted to be hemostatic. Left ovarian cyst placed in Endo Catch bag and removed through umbilical port site. Pelvis inspected, again confirming hemostasis. Insufflation stopped. Trochars removed. Skin closed with subcuticular stitch and skin glue. Schulz catheter removed. Manipulator removed. Inspection of cervix noted some oozing at the tenaculum site, hemostatic with silver nitrate. At the end of the procedure all needle, lap, sponge counts were correct. Urine output: 400 cc clear urine Complications None
--- NOTE | 2022-11-01 07:31 | DCINST_ITS ---
Discharge Instructions Diet Discharge Diet: No restrictions Activity Discharge Activity: Return to Normal Activity and May Shower May resume sexual activity in: 2 weeks Weight Bearing Status: Weight bearing as tolerated Lifting Restrictions: No greater than 15 pounds Dressing / Incision Call your doctor if your incision/area has: Continuous Slow Oozing, Increased Pain/ Swelling, Increased Redness and Foul Smelling Discharge Call your doctor if you observe: Fever of 101 or Higher, Inability to urinate, Using more than 1 pad per hour, Shortness of breath, Chest pain, Calf discomfort and Uncontrolled pain Cleanse incision/area with: Soap & Water and Keep Dressing Clean & Dry Follow Up Care Please Follow Up With: Susan Baeza DO When: 2 weeks post operative visit. Test Results: Test results from this visit will be discussed in further detail at your follow- up appointment, if applicable. Discharge Plan Admission Primary Reason for Your Visit: Laparoscopy Attending Provider: Susan Baeza Primary Care Provider: Darrel Zhang Discharge Orders/Prescriptions Prescriptions: New oxycodone 5 mg tablet 5 mg PO Q6H PRN (Reason: pain (scale score 7-10)) 5 Days Qty: 20 0RF Continued cholecalciferol (vitamin D3) 1,000 unit capsule 1,000 unit PO DAILY cetirizine 10 MG capsule 10 mg PO DAILY Referrals / Follow Up: Darrel Zhang MD [Primary Care Provider] - Disposition Disposition (needs filled in before D/C Order can be placed): Home, Self Care
[2022-11-01] MEDS: Silver Nitrate (BKC) 1 EACH (08:34)
== END 2022-11-01 12:17 | disposition home or self-care (01) ==
LOC: SDC 06:01 → AC 06:02
PROVIDERS: Anesthesiology; PCP Family Medicine; Referring Provider Student in an Organized Health Care Education/Training Program; Visit Provider Student in an Organized Health Care Education/Training Program
PROC: (CPT 58661; principal; 2022-11-01 07:15)
DX: N83.11 Corpus luteum cyst of right ovary (principal); N83.12 Corpus luteum cyst of left ovary; Z97.5 Presence of (intrauterine) contraceptive device
CPT/HCPCS: 58662; 36415; 81025; 84443; 85027; 85610; 85730; 86850; 86900; 86901; 88305; J7120; J2405

== ENCOUNTER → 2023-03-07 | Outpatient (CLI) | payer OTHER, SELFPAY ==
[2023-03-07 12:48] LABS: Vitamin B12 311 pg/mL (211-911); Vitamin D,25 Hydroxy 73.8 ng/mL
[2023-03-07 12:54] LABS: ALB/GLOB Ratio 1.2 RATIO (0.9-2.4); AST(SGOT) 19 U/L (15-37); Alanine Aminotransfer ALT/SGPT 22 U/L (13-56); Albumin, Serum 3.7 g/dL (3.2-5.0); Alkaline Phosphatase 80 U/L (45-117); Anion Gap 4 (5-15); BUN 8 mg/dL (7-18); BUN/Creat Ratio 12.5 RATIO (10-20); Calcium,Total 9.6 mg/dL (8.5-10.1); Chloride 105 mmol/L (98-107); Creatinine, Serum 0.64 mg/dL (0.55-1.02); EST Glomerular Filtration Rate 111 mL/min (>60); Est Glom Filt Rate - Afr Amer 135 mL/min (>60); Globulin 3.2 g/dL (2.2-4.2); Glucose 97 mg/dL (74-106); Potassium 3.9 mmol/L (3.5-5.1); Protein, Total 6.9 g/dL (6.4-8.2); Sodium Level 135 mmol/L (136-145); T4 Free Direct 0.99 ng/dL (0.76-1.46); Thyroid Stim Hormone (TSH) 1.76 uIU/mL (0.358-3.74)
[2023-03-08 08:25] LABS: Thyroid Peroxidase AB < 9 IU/mL (0-34)
== END | disposition home or self-care (01) ==
LOC: MFPLAB 09:46
PROVIDERS: PCP Family Medicine; Visit Provider Family Medicine
DX: R53.83 Other fatigue (principal); E55.9 Vitamin D deficiency, unspecified; E04.1 Nontoxic single thyroid nodule
CPT/HCPCS: 36415; 80053; 82306; 82607; 84439; 84443; 84481; 86376

== ENCOUNTER → 2023-03-08 | Outpatient (CLI) | payer OTHER, SELFPAY ==
--- NOTE | 2023-03-08 18:30 | US_ITS ---
STUDY: THYROID ULTRASOUND REASON FOR EXAM: Female, 37 years old. NODULE TECHNIQUE: Ultrasound evaluation of the thyroid was performed with real-time and static llamas-scale imaging. COMPARISON: 10/16/2018 FINDINGS: RIGHT LOBE: The right lobe of the thyroid gland measures 5.7 x 1.6 x 1.6 cm. There is a homogeneous echotexture. There are no demonstrated solid, cystic or complex lesions. LEFT LOBE: The left lobe of the thyroid gland measures 5.4 x 1.5 x 1.5 cm. There is a homogeneous echotexture. 5 mm colloid cyst in the left lobe. ISTHMUS: The isthmus measures 2 mm thick. . The regional lymph nodes are normal. US/Thyroid IMPRESSION: Normal ultrasound examination of the thyroid. Small colloid cyst in the left lobe Electronically Signed: Alexandr Moore MD at 18:00 EDT ,
== END | disposition home or self-care (01) ==
LOC: US 18:16
PROVIDERS: PCP Family Medicine; Referring Provider Family Medicine; Visit Provider Family Medicine
DX: E04.1 Nontoxic single thyroid nodule (principal)
CPT/HCPCS: 76536

== ENCOUNTER 2023-04-25 14:05 | Outpatient (RCR) | payer OTHER, SELFPAY | END 2023-05-17 23:59 | LOC: NS 14:05 | PROVIDERS: PCP Family Medicine; Referring Provider Family Medicine; Visit Provider Family Medicine | DX: Z71.3 Dietary counseling and surveillance (principal); E66.9 Obesity, unspecified; Z68.37 Body mass index [BMI] 37.0-37.9, adult | CPT/HCPCS: 97802 ==

== ENCOUNTER → 2023-04-29 | Outpatient (CLI) | payer OTHER, SELFPAY ==
[2023-04-29 15:48] LABS: Cholesterol 171 mg/dL (200); High Density Lipoprotein 46 mg/dL; Triglycerides 225 mg/dL; Very Low Density Lipoprotein 45 mg/dL (5-40)
== END | disposition home or self-care (01) ==
LOC: MTLAB 11:42
PROVIDERS: PCP Family Medicine; Referring Provider Family Medicine; Visit Provider Family Medicine
DX: Z00.00 Encounter for general adult medical examination without abnormal findings (principal)
CPT/HCPCS: 36415; 80061

== ENCOUNTER 2023-05-28 15:33 | Outpatient (RCR) | payer OTHER, SELFPAY | END 2023-06-17 23:59 | LOC: NS 15:33 | PROVIDERS: PCP Family Medicine; Referring Provider Family Medicine; Visit Provider Family Medicine | DX: Z71.3 Dietary counseling and surveillance (principal); E66.9 Obesity, unspecified; Z68.37 Body mass index [BMI] 37.0-37.9, adult | CPT/HCPCS: 97803 ==

== ENCOUNTER → 2024-05-14 | Outpatient (CLI) | payer OTHER, SELFPAY ==
[2024-05-14 10:27] LABS: Anion Gap 5 (5-15); BUN 11 mg/dL (7-18); BUN/Creat Ratio 14.6 RATIO (10-20); Calcium,Total 9.6 mg/dL (8.5-10.1); Chloride 104 mmol/L (98-107); Cholesterol 169 mg/dL (200); Creatinine, Serum 0.75 mg/dL (0.55-1.02); EST Glomerular Filtration Rate 92 mL/min (>60); Est Glom Filt Rate - Afr Amer 111 mL/min (>60); Glucose 101 mg/dL (74-106); High Density Lipoprotein 48 mg/dL; Potassium 3.9 mmol/L (3.5-5.1); Sodium Level 136 mmol/L (136-145); Triglycerides 128 mg/dL; Very Low Density Lipoprotein 26 mg/dL (5-40)
== END | disposition home or self-care (01) ==
LOC: MFPLAB 08:51
PROVIDERS: PCP Family Medicine; Visit Provider Nurse Practitioner Family
DX: Z13.220 Encounter for screening for lipoid disorders (principal); Z13.1 Encounter for screening for diabetes mellitus
CPT/HCPCS: 36415; 80048; 80061